=== PATIENT | female | born 1990 | race Caucasian/White ===

== ENCOUNTER 2020-03-04 14:05 | Inpatient (IN) ==
[~2020-03-04 14:05] MED LIST: *HR* FentaNYL (PF) 100 MCG/2 ML VIAL IVP PRN; Azithromycin 500 MG in 0.9 % Sodium Chloride 250 ML IVPB ONE; Famotidine 20 MG/2 ML VIAL IVP PRN; Lidocaine 1% 20 ML MDV INFILT PRN; Metoclopramide 10 MG/2 ML VIAL IVP PRN; Naloxone 0.4 MG/ML INJ IVP PRN; Ondansetron 4 MG/2 ML VIAL IVP PRN; Penicillin G Potassium 5,000,000 UNIT in 0.9 % Sodium Chloride Mini Bag 100 ML IVPB ONE
[2020-03-04] MEDS ORDERED: Ringers Solution, Lactated 1,000 ML ONE (14:07)
[2020-03-04] MEDS ORDERED: Ringers Solution, Lactated 1,000 ML IVC ONE (14:11)
[2020-03-04] MEDS ORDERED: Oxytocin 20 units/ LR 1000 mL 20 UNIT/1,000 ML BAG IVC SCH (14:15)
[2020-03-04 14:50] LABS: Basophils % 0.2 %; Eosinophils # 0.1 K/mcL (0.0-0.6); Eosinophils % 0.7 %; Hematocrit 37.3 % (35.3-44.9); Hemoglobin 12.3 g/dL (11.5-15.4); Immature Granulocytes % 0.6 % (0-4); Lymphocytes # 1.3 K/mcL (0.6-4.6); Lymphocytes % 10.2 %; Mean Corpuscular Hemoglobin 29.9 pg (28.0-33.3); Mean Corpuscular Volume 90.8 fL (83.0-100.0); Mean Platelet Volume 10.8 fL (9.4-12.4); Monocytes % 7.9 %; Neutrophils # 10.2 K/mcL (1.6-8.9); Platelet Count 227 K/mcL (140-400); Red Blood Count 4.11 M/mcL (3.82-4.97); Red Cell Distribution Width 12.8 % (11.5-14.5); Segmented Neutrophils % 80.4 %; White Blood Count 12.7 K/mcL (4.3-11.1)
[2020-03-04 15:05] LABS: Amphetamine Screen,Urine Negative ng/mL (Cutoff=1000); Barbiturate Screen,Urine Negative ng/mL (Cutoff=200); Benzodiazepines Screen,Urine Negative ng/mL (Cutoff=200); Cannabinoid Screen,Urine Negative ng/mL (Cutoff = 50); Cocaine Screen,Urine Negative ng/mL (Cutoff= 300); Opiate Screen,Urine Negative ng/mL (Cutoff=300); Phencyclidine Screen,Urine Negative ng/mL (Cutoff=25)
[2020-03-04] MEDS ORDERED: EPHEDrine 50 MG/ML VIAL IVP PRN (15:43)
[2020-03-04] MEDS ORDERED: Epidural Premix (fent/bupiv) 110 ML EP SCH (15:45)
[2020-03-04] MEDS: Penicillin G Potassium 2,500,000 UNIT/105 ML MLS IVPB SCH ×2 (18:37→22:21)
[2020-03-04] MEDS: Ringers Solution, Lactated 1,000 ML IVC SCH ×2 (18:42→22:22)
[2020-03-04] MEDS ORDERED: Ropivacaine/PF 0.2% 20 ML VIAL ONE (19:34)
[2020-03-04] MEDS ORDERED: *HR* FentaNYL (PF) 100 MCG/2 ML VIAL ONE (19:34)
[2020-03-05] MEDS ORDERED: Benzocaine/Menthol 56 GM AEROSOL SPRAY TP PRN (02:23)
[2020-03-05] MEDS ORDERED: Oxytocin 20 units/ LR 1000 mL 20 UNIT/1,000 ML BAG IVC SCH (02:23)
[2020-03-05] MEDS ORDERED: Lanolin 7 G OINT...G. TP PRN (02:23)
[2020-03-05] MEDS: Ibuprofen 600 MG TABLET PO SCH ×4 (03:00→22:02)
[2020-03-05] MEDS: Acetaminophen 325 MG TABLET PO SCH ×3 (06:48→18:59)
[2020-03-05] MEDS: Prenatal Vit/FA 1 EACH TABLET PO SCH (08:53)
[2020-03-06] MEDS: Acetaminophen 325 MG TABLET PO SCH ×2 (01:22→09:00)
[2020-03-06 08:33] VITALS: BP 128/82
[2020-03-06] MEDS: Prenatal Vit/FA 1 EACH TABLET PO SCH (09:00)
[2020-03-06] MEDS: Ibuprofen 600 MG TABLET PO SCH (09:01)
== END 2020-03-06 14:31 | disposition home or self-care (01) | DRG 807 ==
LOC: 1NENULAB → 1NENUOBS 03-05 02:46
PROVIDERS: ADMIT Obstetrics & Gynecology; ATTEND Obstetrics & Gynecology